=== PATIENT | male | born 1950 | race Caucasian/White ===

== ENCOUNTER 2022-07-27 00:23 | Day surgery (SDC) | payer BC, SELFPAY ==
[2022-07-12 08:33] VITALS: BMI 24.4
[2022-07-27 06:16] VITALS: BP 157/116; PULSE 94; RESP 18; TEMP 36.8; O2SAT 97; BMI 26.8
[2022-07-27] MEDS: LACTATED RINGERS 1,000 ML 150 ML IV CONT (06:29)
--- NOTE | 2022-07-27 06:36 | P.PNAN_ITS ---
Anes - Initial Pre Proc Eval Procedure: Operation Date: 07/27/22 07:30 Proposed Procedures p Screening Colonoscopy - Osito Amaya MD Date/Time: 07/27/22 06:36 Surgeon: Osito Amaya MD Pre Op Diagnosis: neoplasm screening Patient Data Age: 71 Gender: M Height: 1.8 m Weight: 87.2 kg Last Vital Signs Temp 36.8 C 07/27/22 06:16 Pulse 94 07/27/22 06:16 Resp 18 07/27/22 06:16 BP 157/116 H 07/27/22 06:16 Pulse Ox 97 07/27/22 06:16 O2 Del Method Room Air 07/27/22 06:16 Allergies Allergy/AdvReac Type Severity Reaction Status Date / Time No Known Allergies Allergy Unknown Verified 07/12/22 08:33 Home Medications Medication Instructions Recorded Confirmed Type No Home Medications 07/27/22 07/27/22 History Patient hx anesthesia problems: none Family hx anesthesia problems: none Results Review: All pre-operative results and documents have been reviewed as part of the pre- operative evaluation. [facility] Past Medical History Medical History (Updated 07/27/22 @ 06:36 by Johnny Gresham MD) HTN (hypertension) Surgical History Surgical History (Updated 07/27/22 @ 06:37 by Johnny Gresham MD) H/O hernia repair Family History Family History Father Family history of malignant melanoma, Onset Age: 72 Social History Social History Smoking status: Never smoker Alcohol intake: current Drinks per week: 1 Alcohol use details: BEER Substance use: never Substance use type: does not use Living arrangements: with family Spiritual care concerns: No Anes - Eval Final PreProcedure Day of Procedure 07/27/22 06:36 Patient weight: normal Heart: regular rate and rhythm Lungs: clear to auscultation Airway: Mallampati scale class II Neurological: alert and oriented Last oral intake: >/= 8 hours ASA classification: II Emergent: no Anesthetic plan: proceed Anesthesia type and monitoring: general GIVS and standard monitoring Results Review: All pre-operative results and documents have been reviewed as part of the pre- operative evaluation. Informed Consent: The patient's anesthetic plan and its attendant risks and benefits were discussed with the patient/family/POA. Questions were solicited and answers provided to the satisfaction of the patient/family/POA.
--- NOTE | 2022-07-27 07:22 | P.HP_ITS ---
History of Present Illness History of Present Illness Consent: Risks, benefits, and alternatives have been discussed and questions answered. Patient agrees to proceed with procedure. Chief complaint: neoplasm screening Narrative: Juan Vargas is a 71 year old male Presents for screening colonoscopy. Patient's current weight appetite are normal. Patient's states that his current bowel movements are normal. He has had no pain or bleeding. Family history noncontributory. Previous colonoscopy was at least 10 years ago. Review of Systems Review of Systems: Review of systems noncontributory. [facility] Past Medical History Medical History (Updated 07/27/22 @ 07:23 by Osito Amaya MD) HTN (hypertension) Surgical History Surgical History (Updated 07/27/22 @ 06:37 by Johnny Gresham MD) H/O hernia repair Family History Family History Father Family history of malignant melanoma, Onset Age: 72 Social History Social History Smoking status: Never smoker Alcohol intake: current Drinks per week: 1 Alcohol use details: BEER Substance use: never Substance use type: does not use Living arrangements: with family Spiritual care concerns: No Meds Home Medications and Allergies Home Medications Medication Instructions Recorded Confirmed Type No Home Medications 07/27/22 07/27/22 History Allergies Allergy/AdvReac Type Severity Reaction Status Date / Time No Known Allergies Allergy Unknown Verified 07/12/22 08:33 Vital Signs Vital Signs - 24 hr 07/27/22 06:16 Temperature 98.2 F Pulse Rate 94 Respiratory Rate 18 Blood Pressure 157/116 H Pulse Oximetry 97 Oxygen Delivery Room Air Exam Narrative: Physical exam reveals patient to be alert. Vital signs stable. HEENT exam is unremarkable. Patient is anicteric. Lungs are clear to auscultation and percussion. Heart is without murmur or extra sounds. Abdomen bowel sounds are present soft nontender with no organomegaly. Digital external rectal exam is normal. Assessment and Plan Assessment and plan (1) Encounter for screening colonoscopy: Code(s): Z12.11 - Encounter for screening for malignant neoplasm of colon Status: Acute Assessment and Plan: Patient presents today for screening colonoscopy. He appears to be at average risk for colon polyps. Further recommendations may be given after endoscopy.
[2022-07-27] MEDS: SIMETHICONE ORAL SUSPENSION 20 MG/0.3 ML 30 ML BOTTLE 0.6 ML IRRIGATION (07:40)
[2022-07-27 07:52] VITALS: BP 117/76; PULSE 68; RESP 18; O2SAT 98
[2022-07-27 08:02] VITALS: BP 110/78; PULSE 67; RESP 20; O2SAT 97
[2022-07-27 08:12] VITALS: BP 126/74; PULSE 68; RESP 20; O2SAT 98
== END 2022-07-27 08:20 | disposition home or self-care (01) ==
PROVIDERS: PCP Hospitalist; Visit Provider Internal Medicine Gastroenterology
PROC: 0DJD8ZZ Inspection of Lower Intestinal Tract, Via Natural or Artificial Opening Endoscopic (ICD-10-PCS; CPT 45378; principal; 2022-07-27 07:30)
DX: Z12.11 Encounter for screening for malignant neoplasm of colon (principal); D12.2 Benign neoplasm of ascending colon; D12.8 Benign neoplasm of rectum; K64.8 Other hemorrhoids
CPT/HCPCS: 45385; 88305; J2704; J7120